=== PATIENT | female | born 1945 | race Caucasian/White ===

== ENCOUNTER 2017-12-07 11:05 | Emergency (ER) | payer MEDICARE ==
[~2017-12-07] VITALS: Ht 154.9 cm; Wt 60.0 kg
[~2017-12-07 11:05] MED LIST: ASPI81TA82 PO; GLUC500C3 PO
[2017-12-07 11:07] VITALS: BP 134/80; PULSE 60; RESP 18; TEMP 98; O2SAT 98
[2017-12-07] MEDS ORDERED: CEPH-460 PO (11:24)
--- NOTE | 2017-12-07 11:24 | PD ---
HPI Chief Complaint: Bite or Sting Time Seen by Provider: 11:12 Travel History International Travel<30 days: No Contact w/Intl Traveler<30days: No Traveled to known affect area: No History of Present Illness HPI This 72-year-old woman presents to the emergency department complaining of some superficial scrapes to her left ankle from her dog. She is an older dog who did see well who she startled and got bit or scratched on the ankle last night. She cleansed the wound and put some antibiotic ointment on it. Not sure tetanus is up-to-date. Is otherwise been feeling well and healthy. Her dog does not leave the house at all, but is not up-to-date on shots. History Past Medical History Medical History: Denies Significant Hx Social History Alcohol Use: No Tobacco Use: No Allergies-Medications (Allergen,Severity, Reaction): Coded Allergies: Sulfa (Sulfonamide Antibiotics) (Unverified Allergy, Unknown, "didnt feel well", 12/07/17) acetaminophen (Unverified Allergy, Unknown, double vision, 02/06/17) oxycodone (Unverified Allergy, Unknown, double vision, 12/07/17) Reported Meds & Prescriptions Reported Meds & Active Scripts Active Reported Glucosamine (Glucosamine Sulfate) 500 Mg Cap 500 Mg PO DAILY Aspir-81 (Aspirin) 81 Mg Tab 81 Mg PO DAILY Review of Systems Except as stated in HPI: all other systems reviewed are Neg Physical Exam Narrative GENERAL: Well-appearing 72-year-old woman, no acute distress. SKIN: Warm and dry. CARDIOVASCULAR: Warm and well perfused. RESPIRATORY: Normal rate and effort. MUSCULOSKELETAL: Focused examination of left ankle reveals small scrapes and scratches on the left ankle, both medial lateral malleolus. No deep puncture wound. No significant lacerations. No erythema redness swelling ecchymosis or other evidence of injury. No bony tenderness. Full strength. Able to walk without difficulty. NEUROLOGICAL: Awake and alert. No gross deficits. Data Data Last Documented VS Vital Signs Date Time Temp Pulse Resp B/P (MAP) Pulse Ox O2 Delivery O2 Flow Rate FiO2 12/07/17 11:07 98.0 60 18 134/80 (98) 98 Orders Orders Tetanus & Diptheria (12/07/17 11:19) [facility] Medical Decision Making Medical Screen Exam Complete: Yes Emergency Medical Condition: Yes Differential Diagnosis Dog bite, scrape, laceration, infection, other Narrative Course Medical decision making This 71-year-old woman presents emerged from with injuries from her dog, either scratch or bite is not real clear. Very superficial. Looks well. Will update tetanus. 3 days of antibiotics. Local wound care. Diagnosis Primary Impression: Dog bite Patient Instructions: General Instructions Additional Instructions: Keep wound clean and dry. Wash daily with soap and water. Apply antibiotic ointment to wound twice daily until wound heals. Take antibiotics as prescribed. Follow-up with your primary doctor if you are not completely healed in 1 week. Med/Other Pt SpecificInfo: Prescription(s) given Scripts Cephalexin (Keflex) 500 Mg Cap 500 MG PO Q8H for Infection for 3 Days, #9 CAP 0 Refills Prov: Guerrero Luna MD 12/07/17 Disposition: 01 DISCHARGE HOME Condition: Stable Guerrero Luna MD Dec 07, 2017 11:24
[2017-12-07] MEDS ORDERED: DIPHTH/TETANUS/ACEL PERTUSSIS (BOOSTER) 0.5 ML VIAL/PFS IM ONE (11:30)
[2017-12-07 12:06] VITALS: BP 119/64
== END 2017-12-07 12:08 | disposition home or self-care (01) ==
LOC: NEPD 11:05
DX: S90.572A Other superficial bite of ankle, left ankle, initial encounter (principal); W54.0XXA Bitten by dog, initial encounter; Z23 Encounter for immunization
CPT/HCPCS: 90471; 90715